=== PATIENT | male | born 1990 | race Hispanic/Latino ===

== ENCOUNTER 2018-03-08 14:47 | Emergency (ER) | payer SELFPAY ==
[2018-03-08] MEDS ORDERED: HYDROcodone/Acetaminophen 5/325 mg Tablet ONE (15:01)
--- NOTE | 2018-03-08 15:20 | RAD ---
SINGLE VIEW OF THE PELVIS: Comparison: None. History: Fell off a ladder 10 ft. this morning with pelvic pain. FINDINGS: Single view of the pelvis shows no evidence of acute fracture or dislocation. No degenerative changes are seen. No focal soft tissue swelling is present. IMPRESSION: Unremarkable exam. POS: [facility]
--- NOTE | 2018-03-08 15:24 | RAD ---
TWO VIEWS RIGHT HIP: Comparison: None. History: Fall off a ladder 10 ft. this morning, right hip pain. FINDINGS: Two views of the right hip shows no evidence of acute fracture or dislocation. No degenerative change s are seen. No focal soft tissue swelling is present. IMPRESSION: Unremarkable exam. POS: [facility]
== END 2018-03-08 15:32 | disposition home or self-care (01) ==
LOC: ERS 14:47
DX: S70.01XA Contusion of right hip, initial encounter (principal); F17.210 Nicotine dependence, cigarettes, uncomplicated; W11.XXXA Fall on and from ladder, initial encounter
CPT/HCPCS: 72170

== ENCOUNTER 2018-08-04 05:55 | Emergency (ER) | payer SELFPAY ==
--- NOTE | 2018-08-04 08:03 | RAD ---
TWO VIEWS OF THE RIGHT HIP: COMPARISON: None. HISTORY: Right hip pain for 2-3 months. FINDINGS: Two views of the right hip show no evidence of acute fracture or dislocation. No degenerative change s are seen. No soft tissue swelling is present. IMPRESSION: Unremarkable exam. POS: [facility]
--- NOTE | 2018-08-04 08:26 | RAD ---
THREE VIWES LUMBAR SPINE: DATE: 08/04/2018. HISTORY: Fall from roof in February. Intermittent right lower extremity pain 2-3 months ago, but now pain is con stant. The patient also reports pain in the lower back which shoots into the right leg. FINDINGS: There are 5 [id number] lumbar-type vertebral bodies. The vertebral body heights and interverteb ral disk spaces are within normal limits. No fracture or subluxation is seen involving the lumbar sp ine. Phleboliths overlie the pelvis. IMPRESSION: 1. No fracture or subluxation involving the lumbar spine. 2. Given the patient's radicular symptoms, MRI lumbar spine may be helpful for further evaluation. POS: [facility]
[2018-08-04] MEDS ORDERED: Ketorolac Tromethamine 60 MG/2 ML VIAL ONE (08:32)
== END 2018-08-04 08:55 | disposition home or self-care (01) ==
LOC: ERS 05:55
DX: S39.012A Strain of muscle, fascia and tendon of lower back, initial encounter (principal); F17.210 Nicotine dependence, cigarettes, uncomplicated; X58.XXXA Exposure to other specified factors, initial encounter
CPT/HCPCS: 72100; 96372; J1885

== ENCOUNTER 2019-03-11 12:09 | Emergency (ER) | payer SELFPAY | END 2019-03-11 13:53 | disposition home or self-care (01) | LOC: ERS 12:09 | DX: S09.90XA Unspecified injury of head, initial encounter (principal); S05.12XA Contusion of eyeball and orbital tissues, left eye, initial encounter; F17.210 Nicotine dependence, cigarettes, uncomplicated | CPT/HCPCS: 99283 ==

== ENCOUNTER 2019-08-22 12:09 | Emergency (ER) | payer SELFPAY ==
[2019-08-22] MEDS ORDERED: cefTRIAXone\\ROCEPHIN 250 MG VIAL ONE (12:31)
[2019-08-22] MEDS ORDERED: Azithromycin 250 MG TAB ONE (12:31)
[2019-08-22] MEDS ORDERED: Lidocaine 1% PF 5 ML VIAL ONE (12:31)
== END 2019-08-22 12:45 | disposition home or self-care (01) ==
LOC: ERS 12:09
DX: Z20.2 Contact with and (suspected) exposure to infections with a predominantly sexual mode of transmission (principal); F17.210 Nicotine dependence, cigarettes, uncomplicated
CPT/HCPCS: 96372; 99283; J0696; J2001

== ENCOUNTER 2019-09-17 00:15 | Emergency (ER) | payer SELFPAY ==
--- NOTE | 2019-09-17 08:12 | RAD ---
EXAM: XR Wrist 3 Rt View STANDARD PROVIDED CLINICAL HISTORY: Pain status post injury COMPARISON: None FINDINGS: Minimally displaced ulnar styloid fracture. Possible nondisplaced scaphoid waist fracture. No additio nal fracture is evident. Alignment appears anatomic. Joint spaces appear preserved. IMPRESSION: Ulnar styloid and possible nondisplaced scaphoid waist fractures. Orthopedic consultation recommended .
== END 2019-09-17 01:41 | disposition home or self-care (01) ==
LOC: ERS 00:15
DX: S52.611A Displaced fracture of right ulna styloid process, initial encounter for closed fracture (principal); F17.210 Nicotine dependence, cigarettes, uncomplicated; W18.30XA Fall on same level, unspecified, initial encounter; Y93.64 Activity, baseball
CPT/HCPCS: 29125

== ENCOUNTER 2019-11-01 13:32 | Emergency (ER) | payer SELFPAY ==
--- NOTE | 2019-11-01 14:02 | RAD ---
RIGHT WRIST 3 VIEWS: Date: 11/01/2019 HISTORY: Several injuries over the last couple of months. Limited range of motion. FINDINGS: There is a fracture which is predominantly through the waist region of the scaphoid. I do not see any signs of avascular necrosis at this point. There is an avulsion fracture of the ulnar styloid also s een. In reviewing a previous 09/17/2019 exam, the waist fracture through the scaphoid shows greater l ucency without any definite evidence of healing. IMPRESSION: Ulnar styloid fracture. The styloid fracture is slightly more displaced than on the previous 09/17/20 19 study. In addition, the waist fracture through the scaphoid is much more evident on this exam with increased lucency and no definitive evidence for healing. Also, no signs of avascular necrosis. The fracture is more distracted than on the previous examination with the distal coil more volarly displa andrei. POS: [facility]
== END 2019-11-01 14:45 | disposition home or self-care (01) ==
LOC: ERS 13:32
DX: S52.611A Displaced fracture of right ulna styloid process, initial encounter for closed fracture (principal); S62.001A Unspecified fracture of navicular [scaphoid] bone of right wrist, initial encounter for closed fracture; F17.210 Nicotine dependence, cigarettes, uncomplicated; W18.30XA Fall on same level, unspecified, initial encounter; Y93.64 Activity, baseball

== ENCOUNTER 2019-12-09 15:06 | Emergency (ER) | payer SELFPAY | END 2019-12-09 15:38 | disposition home or self-care (01) | LOC: ERS 15:06 | DX: J01.90 Acute sinusitis, unspecified (principal); F17.210 Nicotine dependence, cigarettes, uncomplicated | CPT/HCPCS: 99283 ==

== ENCOUNTER 2020-12-14 00:05 | Emergency (ER) | payer SELFPAY | END 2020-12-14 01:33 | disposition home or self-care (01) | LOC: ERS 00:05 | DX: S60.051A Contusion of right little finger without damage to nail, initial encounter (principal); F17.210 Nicotine dependence, cigarettes, uncomplicated; W22.8XXA Striking against or struck by other objects, initial encounter; Y99.0 Civilian activity done for income or pay ==

== ENCOUNTER 2021-12-26 23:41 | Emergency (ER) | payer SELFPAY ==
[2021-12-26] MEDS ORDERED: Proparacaine 0.5% Opth 15 ML BOT ONE (23:51)
[2021-12-26] MEDS ORDERED: Fluorescein Opthalmic Strip ONE (23:51)
== END 2021-12-27 00:46 | disposition home or self-care (01) ==
LOC: ERS 23:41
DX: T15.01XA Foreign body in cornea, right eye, initial encounter (principal); F17.210 Nicotine dependence, cigarettes, uncomplicated
CPT/HCPCS: 65220

== ENCOUNTER 2022-02-18 02:42 | Emergency (ER) | payer SELFPAY | END 2022-02-18 03:34 | disposition home or self-care (01) | LOC: ERS 02:42 | DX: L23.7 Allergic contact dermatitis due to plants, except food (principal); F17.210 Nicotine dependence, cigarettes, uncomplicated | CPT/HCPCS: 99282 ==

== ENCOUNTER 2022-05-30 08:28 | Emergency (ER) | payer SELFPAY ==
[2022-05-30] MEDS ORDERED: Fluorescein Opthalmic Strip ONE (09:46)
[2022-05-30] MEDS ORDERED: Lisinopril 10 MG TAB ONE (09:46)
[2022-05-30] MEDS ORDERED: Proparacaine 0.5% Opth 15 ML BOT ONE (09:46)
== END 2022-05-30 10:05 | disposition home or self-care (01) ==
LOC: ERS 08:28
DX: S05.01XA Injury of conjunctiva and corneal abrasion without foreign body, right eye, initial encounter (principal); F17.210 Nicotine dependence, cigarettes, uncomplicated; W22.8XXA Striking against or struck by other objects, initial encounter
CPT/HCPCS: 99283